=== PATIENT | female | born 1950 | race Two or more races ===

== ENCOUNTER 2024-12-18 16:01 | Emergency (ER) | payer MEDICAID ==
[~2024-12-18] VITALS: Ht 157.5 cm; Wt 65.9 kg
[2024-12-18 16:03] VITALS: TEMP 97.9
[2024-12-18] MEDS ORDERED: LEVO50 PO (16:08)
[2024-12-18] MEDS: LIDOCAINE 5% TRANSDERMAL PATCH TD ONE (16:46)
[2024-12-18] MEDS: IBUPROFEN 600 MG TABLET PO ONE (16:47)
[2024-12-18 17:45] VITALS: PULSE 65; RESP 18; O2SAT 95
[2024-12-18 18:40] VITALS: BP 138/77; PULSE 70; RESP 18; O2SAT 99
[2024-12-18] MEDS ORDERED: ACET-2247 PO (19:20)
[2024-12-18] MEDS ORDERED: IBUP-1492 PO (19:20)
== END 2024-12-18 19:39 | disposition home or self-care (01) ==
LOC: EMS 16:01
DX: S93.402A Sprain of unspecified ligament of left ankle, initial encounter (principal); S20.211A Contusion of right front wall of thorax, initial encounter; I10 Essential (primary) hypertension; W01.0XXA Fall on same level from slipping, tripping and stumbling without subsequent striking against object, initial encounter; Y93.89 Activity, other specified; Y92.89 Other specified places as the place of occurrence of the external cause; Y99.8 Other external cause status
CPT/HCPCS: 99284; 71101; 73610; 73630; G0238